=== PATIENT | male | born 1975 | race African-American/Black ===

== ENCOUNTER 2018-07-30 00:06 | Emergency (ER) | payer OTHER ==
[~2018-07-30] VITALS: Ht 180.3 cm; Wt 126.1 kg
[2018-07-30] MEDS ORDERED: SYNTHROID75 MCG (00:19)
[2018-07-30] MEDS ORDERED: PREDNISONE 20 M20 MG PO (03:25)
[2018-07-30] MEDS ORDERED: TRAMADOL 50 MG50 MG PO (03:25)
[2018-07-30 03:41] VITALS: BP 148/105
== END 2018-07-30 03:41 | disposition home or self-care (01) ==
LOC: ER 00:06
DX: M54.41 Lumbago with sciatica, right side (principal); F17.210 Nicotine dependence, cigarettes, uncomplicated

== ENCOUNTER 2020-11-12 08:33 | Inpatient (IN) | payer OTHER ==
[~2020-11-12] VITALS: Ht 177.8 cm; Wt 113.4 kg
--- NOTE | ~2020-11-12 | O ---
[facility] [place] [address] OPERATIVE REPORT Name: JENN MCADAMS Room #: 200-I ADM IN M.R.#: [id number] Admission: 11/12/20 Attend Phys: Gil Zelaya MD Discharge: Date of : 71 Report #: [id number] THIS REPORT FOR: cc: Libertad Hernandez MD, Teresa M. MD Challis, Mitchell J. MD ~ DATE OF SERVICE: 11/13/2020 PROCEDURES: 1. Incision and drainage of right peritonsillar abscess. 2. Microdirect laryngoscopy. PREOPERATIVE DIAGNOSES: 1. Right peritonsillar abscess. 2. Right parapharyngeal abscess. POSTOPERATIVE DIAGNOSES: 1. Right peritonsillar abscess. 2. Right parapharyngeal abscess. SURGEON: Dr. Sathya Edmond. ANESTHESIA: General. ESTIMATED BLOOD LOSS: 50 mL. COMPLICATIONS: None. SPECIMENS: Cultures from the right peritonsillar space were sent for aerobic, anaerobic and fungal. INDICATIONS FOR PROCEDURE: The patient is a 45-year-old male who presented to the Emergency Department with complaint of right-sided throat pain. CT revealed right peritonsillar abscess, also possible right parapharyngeal abscess. He was admitted for IV antibiotics and steroids, decided that he would benefit from drainage and the risks, benefits and alternatives were discussed with him and he agreed to proceed. DESCRIPTION OF PROCEDURE: After informed consent was obtained, the patient was taken to the operating room and placed in the supine position. He underwent general anesthesia with endotracheal intubation. He was prepped and draped in the usual fashion. A timeout was performed and the correct patient and procedure were identified. A Jesse-Emory retractor was gently inserted into the oral cavity. The patient was placed into suspension. An 18-gauge needle was inserted into the right peritonsillar space and purulent material was evacuated. [facility] [address] [place] [address] OPERATIVE REPORT Name: JENN MCADAMS Room #: 200-I ADM IN M.R.#: [id number] Admission: 11/12/20 Attend Phys: Gil Zelaya MD Discharge: Date of : 71 Report #: [id number] This was sent for culture. A #11 blade scalpel was then used to make an incision into the right peritonsillar space and this was spread open with a hemostat and loculations of the abscess were disrupted with the hemostat and purulence was evacuated. This abscess pocket was then copiously irrigated with saline. Hemostasis was achieved using suction cautery. Once this was completed, the Jesse-Emory retractor was withdrawn. Dedo laryngoscope was gently inserted into the oral cavity and this was advanced down into the hypopharynx and larynx. There was noted to be some edema on the right hand side. A small incision was made with a sickle blade through the laryngoscope, but no purulence was identified just edematous tissue. Hemostasis was then achieved using cottonoids soaked in epinephrine, 0-degree endoscope was then used to inspect the rest of the hypopharynx and the vocal cords, which was all found to be normal. Epiglottis was found to be normal and not edematous. The endoscope and the laryngoscope were then withdrawn. All instrumentation was removed from the patient. He was turned back to the anesthesia service, successfully extubated in the operating room and taken to recovery room in stable condition. All counts were reported as correct. There were no complications during the procedure. DISPOSITION: The patient will be observed in the PACU until he meets criteria at which point he will be returned to the CCU. He will continue IV antibiotics and steroids. If he does well overnight, he should be able to be discharged home in the morning. By: [id number] Sathya Edmond MD /nt
[~2020-11-12 08:33] MED LIST: PREDNISONE 20 M20 MG PO; SYNTHROID75 MCG; TRAMADOL 50 MG50 MG PO
[2020-11-12 08:49] VITALS: BP 132/86
[2020-11-12] MEDS ORDERED: LISINOPRIL10 MG PO (09:20)
[2020-11-12 09:45] LABS: CALCIUM 9.9 mg/dL (8.5-10.1)
[2020-11-12 15:59] VITALS: BP 171/78
[2020-11-12 16:19] VITALS: BP 171/78
[2020-11-12 16:30] VITALS: BP 140/87
--- NOTE | 2020-11-12 18:07 | NUR ---
RECEIVED PT FROM THE ER. PT IS ALERT AND ORIENTED X4. PT IS DEAF. PT ARRIVED WITH THROAT ABSCESS. POC IS SURGERY [id number]. PT IN CCU FOR O2 MONITORING. RT CONSULTED. 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 PT IS ALSO DEAF, AND THEY COMMUNICATE VIA PT PERSONAL IPAD. HOME MEDS GIVEN TO PHARMACY. FALL PRECAUTION SIGNED. NO CONCERNS AT THIS TIME.
[2020-11-12 20:00] VITALS: BP 117/75
[2020-11-13] VITALS (7 sets, daily range): BP systolic 127–149; BP diastolic 80–107
--- NOTE | 2020-11-13 07:50 | NUR ---
pt assessment as charted, no c/o pain, npo since mnoc for planned surg., vss, iv antibiotics given thru the noc, report given to next shift to con't with ppoc.
[2020-11-13 08:58] LABS: HEMATOCRIT 42.2 % (42.0-52.0); HEMOGLOBIN 14.4 gm/dL (14.0-18.0); MCH 27.4 pg (26.0-34.0); MCHC 34.2 g/dL (28.0-37.0); MCV 80.1 fL (80.0-100.0); RBC 5.27 mil/uL (4.50-6.00); RDW 14.4 % (10.5-14.5); WBC 10.9 thou/uL (4.0-11.0)
[2020-11-13 09:22] LABS: CREATININE 1.2 mg/dL (0.7-1.3); MAGNESIUM 2.5 mg/dL (1.8-2.4); POTASSIUM 3.7 mmol/L (3.5-5.1)
[2020-11-13 09:23] LABS: INR 1.1; PROTIME 11.6 Seconds (9.3-11.4)
--- NOTE | 2020-11-13 14:46 | NUR ---
Patient admits with pharynegeal abscess. Rec consult to notify patients employment that he will be off work. Rec a call from [employer] in [place] while patient in [place] requesting casemgt call Kalin Reynolds [phone] to notify his employment he is in hospital and will be out from work. Sp with Kalin who rec email from patient as well. Patient will need a note for patient to "return to work." Both patient and are deaf. Communicated using tablet with interpretor. 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 Updated communicated with his employment and will need return to work notice. reports patient has apt on with PCP Dr Seble Warren with [facility]. Patient to have thyroid checked. She questions if to keep apt. At this time advised to keep apt. Anticipate no dc needs except for letter. casemgt following.
--- NOTE | 2020-11-13 18:44 | NUR ---
AAOX4. COMMUNICATING VIA IPAD D/T DEAFNESS. DOWN FOR ABCESS DRAINAGE BY DR. HESS. SR PER TELE. DENIES CP, SOA. FALL PRECAUTIONS IN PLACE.
[2020-11-14 00:21] VITALS: BP 138/84
[2020-11-14 04:00] VITALS: BP 144/94
[2020-11-14 07:30] VITALS: BP 138/87
--- NOTE | 2020-11-14 07:53 | NUR ---
ASSESSMENTS CHARTED, MEDS CHARTED GIVEN. PATIENT RESTING IN BED DURING SHIFT. SAYS PAIN LEVEL WAS A 3 AND DID NOT NEED PAIN MEDS. NEW IV WAS PLACED IN RIGHT FOREARM AFTER LEFT AC KINKED. 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 PATIENT WAS UPSET AFTER AIDE ABRUPTLY PUT THE THERMOMETER IN HIS MOUTH STARTLING HIM. FELT SHE NEEDED TRAINING IN WORKING WITH THE DEAF. FALL PRECAUTIONS IN PLACE DURING SHIFT.
[2020-11-14] MEDS ORDERED: PREDNISONE 10 M10 M1 PO (12:20)
[2020-11-14] MEDS ORDERED: HYDROCODON-ACE1 EAC7 PO (12:20)
[2020-11-14] MEDS ORDERED: CLEOCIN HCL300 MG PO (12:20)
[2020-11-14 12:37] VITALS: BP 138/87
--- NOTE | 2020-11-14 12:39 | NUR ---
PT A&OX4, VSS, DENIES PAIN. PATIENT IS DEAF AND USES HIS IPAD TO COMMMUNICATE. PATIENT REFUSED TO SIGN DISCHARGE PAPERWORK AND LEFT FLOOR ON FOOT. PATIENT REMOVED HIS OWN IV. PATIENT WAS ANXIOUS AND HOSTILE, STATING HIS RIDE WAS HERE. I TOLD PATIENT EARLIER THIS MORNING THAT WE HAD TO WAIT FOR THE DOCTOR TO PUT IN DISCHARGE ORDERS. NO SIGNS OF DISTRESS PATIENT LEFT. PATIENT TOOK I PAD AND BELONGINGS. HE LEFT WITHOUT GETTING HIS HOME MEDICATIONS HE BRUNG IN.
== END 2020-11-14 12:51 | disposition home or self-care (01) | DRG 872 ==
LOC: ER 08:33 → 2N 12:00 → EROBS 12:00 → 2N 16:53
PROVIDERS: Emergency Medicine; ADMIT Internal Medicine; ATTEND Internal Medicine
PROC: 0CJS8ZZ Inspection of Larynx, Via Natural or Artificial Opening Endoscopic (ICD-10-PCS; principal; 2020-11-13)
PROC: 0C9P3ZZ Drainage of Tonsils, Percutaneous Approach (ICD-10-PCS; principal; 2020-11-13)
DX: A41.9 Sepsis, unspecified organism (principal); J36 Peritonsillar abscess; F19.10 Other psychoactive substance abuse, uncomplicated; Z20.822 Contact with and (suspected) exposure to COVID-19; E03.9 Hypothyroidism, unspecified; F14.10 Cocaine abuse, uncomplicated; I10 Essential (primary) hypertension; Z87.891 Personal history of nicotine dependence; Z71.41 Alcohol abuse counseling and surveillance of alcoholic; Z79.899 Other long term (current) drug therapy
CPT/HCPCS: 10081; 50010; 50101; 51992; 62110; 62900; 70005

== ENCOUNTER 2021-06-17 09:54 | Emergency (ER) | payer OTHER ==
[~2021-06-17] VITALS: Ht 177.8 cm; Wt 113.4 kg
[~2021-06-17 09:54] MED LIST changes: +CLEOCIN HCL300 MG PO; +HYDROCODON-ACE1 EAC7 PO; +LISINOPRIL10 MG PO; +PREDNISONE 10 M10 M1 PO
[2021-06-17 12:29] LABS: BASOPHILS 1.4 % (0.0-2.0); EOSINOPHILS 3.7 % (0.0-3.0); HEMOGLOBIN 14.8 gm/dL (14.0-18.0); LYMPHOCYTES 40.4 % (24.0-44.0); MCH 27.1 pg (26.0-34.0); MCHC 34.5 g/dL (28.0-37.0); MCV 78.4 fL (80.0-100.0); MONOCYTES 8.1 % (1.0-8.0); PLATELET COUNT 190 thou/uL (150-400); POLYS 46.4 % (36.0-66.0); RBC 5.48 mil/uL (4.50-6.00); RDW 16.1 % (10.5-14.5); WBC 4.4 thou/uL (4.0-11.0)
[2021-06-17 12:42] LABS: CALCIUM 8.6 mg/dL (8.5-10.1); CREATININE 1.5 mg/dL (0.7-1.3)
[2021-06-17 12:50] LABS: ALBUMIN 4.2 g/dL (3.4-5.0); TOTAL BILIRUBIN 0.6 mg/dL (0.2-1.0); TOTAL PROTEIN 7.7 g/dL (6.4-8.2)
[2021-06-17] MEDS ORDERED: NAPROSYN500 M1 PO (14:35)
[2021-06-17] MEDS ORDERED: CLINDAMYCIN HC300 MG PO (14:35)
[2021-06-17] MEDS ORDERED: PERIDEX15 ML PO (14:35)
[2021-06-17 14:57] VITALS: BP 110/70
== END 2021-06-17 14:57 | disposition home or self-care (01) ==
LOC: ER 09:54
PROVIDERS: Emergency Medicine
DX: K08.89 Other specified disorders of teeth and supporting structures (principal); F17.210 Nicotine dependence, cigarettes, uncomplicated; Z79.899 Other long term (current) drug therapy